=== PATIENT | female | born 1985 | race Caucasian/White ===

== ENCOUNTER 2022-08-24 17:22 | Emergency (ER) | payer OTHER, BC, SELFPAY ==
[2022-08-24 17:39] VITALS: BP 129/85; PULSE 69; RESP 16; TEMP 36.5; O2SAT 99
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
[2022-08-24 18:05] VITALS: PULSE 72
[2022-08-24 18:27] VITALS: PULSE 64; O2SAT 99
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
--- NOTE | 2022-08-24 18:54 | ED.NURSE ---
Registration staff was in with pt and asking general information from pt. requested registration staff get a nurse as pt was not asking questions normally and seemed to be fading in and out of consciousness. RN alerted Dr. Bauer immediately [id number]. Dr. Perkins requested this publications writer to call radiology to get pt scanned right away. Call placed to imagining staff. Dr. Perkins assessed pt at bedside. RN to continue to monitor per Dr. Perkins.
[2022-08-24 19:36] LABS: Basophils Absolute Auto 0.04 K/uL (0.00-0.30); Basophils Percent Auto 0.5 % (0.0-3.0); Chloride* 105 mmol/L (96-114); Eosinophils Absolute Auto 0.05 K/uL (0.00-0.50); Eosinophils Percent Auto 0.6 % (0.0-7.0); Hematocrit 40.1 % (33.0-51.0); Hemoglobin* 13.6 gm/dL (12.0-16.0); Immature Granulocytes Abs Auto 0.03 K/uL (0.00-0.30); Immature Granulocytes Pct Auto 0.3 %; Lymphocytes Percent Auto 10.4 % (20-44); Mean Corpuscular HGB Conc 34 gm/dL (32-36); Mean Corpuscular Hemoglobin 30 pg (26-34); Mean Corpuscular Volume 89 fL (80-100); Monocytes Percent Auto 4.2 % (0.0-11.0); Platelet Count* 391 K/uL (140-440); RDW Coefficient of Variation % 13.1 % (11.5-15.5); Red Blood Count 4.51 m/uL (4.00-5.20); Sodium* 139 mmol/L (135-149); White Blood Count* 8.72 K/uL (4.50-11.00)
[2022-08-24 19:37] LABS: Potassium* 4.1 mmol/L (3.6-5.1)
[2022-08-24 19:39] LABS: Blood Urea Nitrogen* 17 mg/dL (5-24); Carbon Dioxide* 27 mmol/L (20-32); Creatinine* 0.8 mg/dL (0.5-1.5); Estimated Glomerular Filt Rate 98 ml/min
[2022-08-24 19:40] LABS: Calcium* 9.4 mg/dL (8.4-10.6); Glucose* 101 mg/dL (60-115)
[2022-08-24 19:41] LABS: Slide Review Reflex No
[2022-08-24 19:42] LABS: Ethanol* < 0.01 % (0.01-0.03)
[2022-08-24] MEDS: KETOROLAC 15 MG/ML inj IVP (20:21)
[2022-08-24 20:40] VITALS: BP 122/76; PULSE 65; RESP 20; O2SAT 97
== END 2022-08-24 21:03 | disposition home or self-care (01) ==
PROVIDERS: Emergency Provider Family Medicine
DX: S16.1XXA Strain of muscle, fascia and tendon at neck level, initial encounter (principal); S39.012A Strain of muscle, fascia and tendon of lower back, initial encounter; V43.52XA Car driver injured in collision with other type car in traffic accident, initial encounter; M79.5 Residual foreign body in soft tissue
CPT/HCPCS: 36415; 70450; 71260; 72125; 72128; 72131; 73130; 80048; 82077; 85025; 96374; 99284; 99285; 99291; J1885; Q9967

== ENCOUNTER 2022-08-28 15:10 | Emergency (ER) | payer OTHER, BC, SELFPAY ==
[2022-08-28 15:24] VITALS: BP 112/74; PULSE 77; RESP 18; TEMP 37.1; O2SAT 99; BMI 23.1
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
[2022-08-28] MEDS: 0.9 % SODIUM CHLORIDE 1000 ml 1,000 ML IV (16:58)
[2022-08-28] MEDS: diphenhydrAMINE 50 MG/ML inj IVP (17:08)
[2022-08-28] MEDS: METOCLOPRAMIDE HCL 10 MG in 0.9 % SODIUM CHLORIDE 100 ml 100 ML 306 MG IVPB (17:21)
== END 2022-08-28 18:25 | disposition home or self-care (01) ==
PROVIDERS: Emergency Provider Family Medicine
DX: S16.1XXA Strain of muscle, fascia and tendon at neck level, initial encounter (principal); F07.81 Postconcussional syndrome; V43.52XA Car driver injured in collision with other type car in traffic accident, initial encounter
CPT/HCPCS: 70450; 72141; 96365; 96375; 99284; J1200; J2765; J7030

== ENCOUNTER 2023-01-31 13:45 | Outpatient (RCR) | payer BC, SELFPAY ==
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
== END 2023-05-31 23:59 | disposition home or self-care (01) ==
PROVIDERS: PCP Nurse Practitioner Family; Visit Provider Nurse Practitioner Family
DX: F07.81 Postconcussional syndrome (principal); H51.11 Convergence insufficiency; R26.81 Unsteadiness on feet; R29.898 Other symptoms and signs involving the musculoskeletal system; R29.818 Other symptoms and signs involving the nervous system; R41.842 Visuospatial deficit; Z51.89 Encounter for other specified aftercare
CPT/HCPCS: 95992; 97110; 97140; 97162; 97165; 97535; X5282

== ENCOUNTER 2024-02-05 08:51 | Outpatient (CLI) | payer BC, SELFPAY | END 2024-02-05 08:52 | disposition home or self-care (01) | LOC: NFLDREF 02-06 05:36 | PROVIDERS: PCP Nurse Practitioner Family; Referring Provider Nurse Practitioner Family; Visit Provider Nurse Practitioner Family | DX: R10.31 Right lower quadrant pain (principal); R30.0 Dysuria; N39.0 Urinary tract infection, site not specified | CPT/HCPCS: 81001; 87086; 87186 ==

== ENCOUNTER 2024-02-05 09:43 | Emergency (ER) | payer BC, SELFPAY ==
[2024-02-05 09:55] VITALS: BP 113/65; PULSE 81; RESP 18; TEMP 37.3; O2SAT 97; BMI 24.4
[2024-02-05 11:19] LABS: Appearance Urine Cloudy (Clear); Bilirubin Urine Negative (Negative); Blood Urine 2+ (Negative); Color Urine Yellow (Yellow); Glucose Urine Negative (Negative); Ketones Urine Negative (Negative); Leukocyte Esterase Urine 1+ (Negative); Nitrite Urine Negative (Negative); Protein Urine Trace (Negative); Urobilinogen Urine 0.2 (0.2-1.0)
--- NOTE | 2024-02-05 11:27 | CRLHL7_ITS ---
For Patients: As a result of the 21st Century Cures Act, medical imaging exams and procedure reports are released immediately into your electronic medical record. You may view this report before your referring provider. If you have questions, please contact your health care provider. INDICATION: Right flank and right lower quadrant pain. COMPARISON: None available. TECHNIQUE: CT of the abdomen and pelvis with 100 cc of Isovue 370 intravenous contrast. Please note that all CT scans at this facility use dose modulation, iterative reconstruction, and/or weight-based dosing when appropriate to reduce radiation dose to as low as reasonably achievable. FINDINGS: ABDOMEN Liver: Normal contour and attenuation. No significant focal lesion. No intrahepatic biliary ductal dilatation. Patent portal veins. Patent hepatic veins. Gallbladder: Normal size. No pericholecystic inflammatory changes. Normal common duct caliber. Pancreas: Normal contour and attenuation. No peripancreatic inflammatory changes. No significant focal lesion. Normal main duct caliber. Spleen: Nonspecific splenomegaly. The spleen measures 13.7 cm in craniocaudal length. No significant focal lesion. Accessory splenule. Patent splenic artery and vein. Adrenal Glands: Symmetrical adrenal glands. No significant focal lesion. Kidneys: Right extrarenal pelvis. Mural hyperenhancement of the right extrarenal pelvis and proximal right ureter (axial series 2; images 68-76 and coronal series 4; image 53) is consistent with pyeloureteritis. Correlation with urinalysis is recommended. Normal bilateral renal attenuation. No significant focal lesion. Too small to characterize round circumscribed homogeneous lateral interpolar right renal cortical hypodensity consistent with a benign renal cortical cyst (2; 65). No nephrolith. No dilatation of the intrarenal collecting systems. No ureteral stone. Nondilated ureters. Patent renal arteries and veins. Gastrointestinal tract: Normal caliber, attenuation and wall thickness of the gastrointestinal tract. No inflammatory changes. Normal small bowel mesentery. Unseen appendix without signs of acute appendicitis. Vascular: Abdominal aorta and its major proximal branches including the celiac, superior mesenteric, inferior mesenteric, renal, and bilateral common iliac arteries are patent. Patent superior mesenteric vein. Peritoneal Cavity/Retroperitoneum: No ascites. No adenopathy. PELVIS No bladder lesion is identified. 7.2 cm anterior homogeneous circumscribed simple fluid attenuation cystic lesion (2; 150), likely arising from the left ovary. Left anterior paramedian location anterior to the uterus without associated twisted vascular pedicle to indicate definite torsion. Ultrasound is recommended for further characterization. 2.1 cm right ovarian corpus luteum (2; 132). Small volume low density rectouterine, left adnexal and vesicouterine pelvic ascites within physiologic limits of normal. No adenopathy. SKELETON AND BODY WALL No acute or significant incidental findings. LOWER THORAX Partially included lower thoracic wall, lungs, pleural spaces and mediastinum are otherwise without significant incidental findings. IMPRESSION: 1. Mural hyperenhancement of the right extrarenal pelvis and proximal right ureter is consistent with pyeloureteritis. No evidence of urolithiasis or obstructive uropathy. Correlation with urinalysis is recommended. 2. 7.2 cm anterior homogeneous circumscribed simple fluid attenuation cystic lesion likely arising from the left ovary displaced anterior to the uterine fundus. No twisted vascular pedicle to indicate definite torsion. Ultrasound is recommended for further characterization. 3. Unseen appendix. No sign of acute appendicitis. 4. Small volume low density rectouterine, left adnexal and vesicouterine pelvic ascites is considered within physiologic limits of normal. Incidental note is made of a right ovarian corpus luteum. 5. Nonspecific splenomegaly. Clinical correlation is recommended as to the potential significance of this incidental imaging finding. Please note that all CT scans at this facility use dose modulation, iterative reconstruction, and/or weight-based dosing when appropriate to reduce radiation dose to as low as reasonably achievable. Dictated by Ron Choi MD @ 02/05/2024 12:41:17 PM (Electronically Signed)
[2024-02-05 11:35] LABS: WBC Urine >100 (0-5)
[2024-02-05 11:36] LABS: Bacteria Urine Few
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
[2024-02-05] MEDS: KETOROLAC 15 MG/ML inj IVP (11:45)
[2024-02-05 11:47] LABS: Basophils Absolute Auto 0.03 K/uL (0.00-0.30); Basophils Percent Auto 0.3 % (0.0-3.0); Eosinophils Absolute Auto 0.03 K/uL (0.00-0.50); Eosinophils Percent Auto 0.3 % (0.0-7.0); Hemoglobin* 15.1 gm/dL (12.0-16.0); Immature Granulocytes Abs Auto 0.03 K/uL (0.00-0.30); Immature Granulocytes Pct Auto 0.3 %; Mean Corpuscular HGB Conc 34 gm/dL (32-36); Mean Corpuscular Hemoglobin 28 pg (26-34); Mean Corpuscular Volume 84 fL (80-100); Monocytes Percent Auto 5.2 % (0.0-11.0); Neutrophils Percent Auto 85.9 % (42.0-72.0); Platelet Count* 304 K/uL (140-440); Red Blood Count 5.39 m/uL (4.00-5.20); White Blood Count* 10.88 K/uL (4.50-11.00)
[2024-02-05] MEDS: ONDANSETRON 2 MG/ML inj 4 MG IVP (11:48)
[2024-02-05 11:54] LABS: Ur HCG Qualitative* Negative (Negative)
[2024-02-05 11:57] VITALS: BP 112/72; PULSE 64; RESP 18; TEMP 37.2; O2SAT 97
[2024-02-05 12:13] LABS: Albumin* 4.2 g/dL (3.3-5.0); Chloride* 104 mmol/L (96-114); Sodium* 138 mmol/L (135-149)
[2024-02-05 12:16] LABS: Alkaline Phosphatase* 60 U/L (40-150); Anion Gap 8 mEq/L (7-15); Aspartate Amino Transferase* 20 U/L (12-35); Bilirubin Total* 0.7 mg/dL (0.1-1.5); Blood Urea Nitrogen* 12 mg/dL (5-24); Carbon Dioxide* 26 mmol/L (20-32); Creatinine* 0.6 mg/dL (0.5-1.5); Est. Creatinine Clearance* 154.29; Estimated Glomerular Filt Rate 119 ml/min
[2024-02-05 12:17] LABS: Alanine Aminotransferase* 14 U/L (4-35); Calcium* 9.2 mg/dL (8.4-10.6); Glucose* 96 mg/dL (60-115)
[2024-02-05 12:23] LABS: Slide Review Reflex No
--- NOTE | 2024-02-05 12:48 | CRLHL7_ITS ---
For Patients: As a result of the Century Cures Act, medical imaging exams and procedure reports are released immediately into your electronic medical record. You may view this report before your referring provider. If you have questions, please contact your health care provider. INDICATION: Follow-up cyst on CT. TECHNIQUE: Transabdominal pelvic ultrasound. COMPARISON: CT abdomen and pelvis with contrast 02/05/2024. FINDINGS: Uterus measures 9.3 x 4.9 x 5.8 cm. Uterus is homogeneous in echotexture, without evidence of discrete mass lesion. Endometrium: 14 mm in thickness. No sign of endometrial mass or fluid. Right ovary measures 4.3 x 2.5 x 2.6 cm. Right ovary is within normal limits. Normal-appearing color Doppler flow in the right ovary. Right adnexal region as imaged is unremarkable. Left ovary measures 3.6 x 2.1 x 2.4 cm. Simple appearing cystic lesion arising from or adjacent to the left ovary measures 7.2 x 5.5 x 6.3 cm. No associated vascularity. Normal-appearing color Doppler flow in the left ovary. Left adnexal region as imaged is otherwise unremarkable. Small amount of pelvic free fluid is better demonstrated on recent CT. IMPRESSION: Simple appearing left ovarian or paraovarian cyst measures up to 7.2 cm. Follow-up pelvic ultrasound in 8-12 weeks is recommended for further evaluation. Dictated by Lokesh Webber MD @ 02/05/2024 1:49:43 PM Dictated by: Lokesh Webber MD @ 02/05/2024 13:49:54 (Electronically Signed)
[2024-02-05] MEDS: cefTRIAXone 1 GM in 0.9 % SODIUM CHLORIDE Mini-bag 100 ML IVPB (13:28)
[2024-02-05 13:39] VITALS: BP 114/71; PULSE 61; RESP 18; TEMP 36.7; O2SAT 98
== END 2024-02-05 14:23 | disposition home or self-care (01) ==
PROVIDERS: Emergency Provider Student in an Organized Health Care Education/Training Program; PCP Nurse Practitioner Family
DX: N12 Tubulo-interstitial nephritis, not specified as acute or chronic (principal); N83.202 Unspecified ovarian cyst, left side
CPT/HCPCS: 36415; 74177; 76856; 80053; 81001; 81025; 85025; 93976; 96365; 96375; 99283; 99284; 99285; J0696; J1885; J2405; Q9967

== ENCOUNTER 2024-03-04 14:10 | Outpatient (CLI) | payer BC, SELFPAY ==
[2024-03-07 09:26] LABS: HPV Source Cervix; HPV, High Risk by TMA Not Detected
== END 2024-03-04 14:11 | disposition home or self-care (01) ==
PROVIDERS: PCP Nurse Practitioner Family; Visit Provider Obstetrics & Gynecology
DX: Z12.4 Encounter for screening for malignant neoplasm of cervix (principal); Z11.51 Encounter for screening for human papillomavirus (HPV)
CPT/HCPCS: 87624; 87625; 88141; 88142

== ENCOUNTER 2024-03-11 08:50 | Outpatient (CLI) | payer BC, SELFPAY | END 2024-03-11 08:51 | disposition home or self-care (01) | LOC: NFLDREF 03-12 01:56 | PROVIDERS: PCP Nurse Practitioner Family; Referring Provider Nurse Practitioner Family; Visit Provider Obstetrics & Gynecology | DX: Z13.220 Encounter for screening for lipoid disorders (principal); N83.202 Unspecified ovarian cyst, left side | CPT/HCPCS: 80061 ==

== ENCOUNTER 2024-03-11 08:52 | Outpatient (CLI) | payer BC, SELFPAY ==
--- NOTE | 2024-03-11 09:15 | CRLHL7_ITS ---
For Patients: As a result of the Century Cures Act, medical imaging exams and procedure reports are released immediately into your electronic medical record. You may view this report before your referring provider. If you have questions, please contact your health care provider. INDICATION: Follow up left ovarian cyst. TECHNIQUE: Transabdominal and transvaginal pelvic ultrasound. Grayscale and color Doppler images. COMPARISON: 02/05/2024. FINDINGS: Uterus is anteverted and measures 9.1 x 5.3 x 6.9 cm. Endometrial stripe thickness is 1.1 cm. Both ovaries appear normal. There is a simple left adnexal cyst measuring 6.8 cm in diameter, similar to the prior study. IMPRESSION: Stable simple left adnexal cyst. Dictated by Wisam Sanchez MD @ 03/11/2024 11:54:34 AM (Electronically Signed)
== END 2024-03-11 08:53 | disposition home or self-care (01) ==
LOC: US 08:52
PROVIDERS: PCP Nurse Practitioner Family; Visit Provider Obstetrics & Gynecology
DX: N83.202 Unspecified ovarian cyst, left side (principal)
CPT/HCPCS: 76830; 76856

== ENCOUNTER 2024-04-01 06:56 | Day surgery (SDC) | payer BC, SELFPAY ==
[2024-04-01] VITALS (15 sets, daily range): BP systolic 108–131; BP diastolic 65–110; PULSE 50–74; RESP 12–19; TEMP 36.3–36.8; O2SAT 96–98; BMI 24.0
--- OUTSIDE RECORDS SUMMARY | 2024-04-01 06:59 | XMS_ITS | Clinical Summary ---
Author Organization [facility] Address [address] [place] [id number] Phone Care Team Providers Care Cnc Lathe Machine Operator Name Role Phone Christine Marlenecrescencio Morales APRN, CNM Primary Care Provider Allergies No known active allergies Medications vitamin (CALNA) tabletIndication s: care and examination Take 1 Tab by mouth one time a day. 09/22/2010 Active oxyCODONE (ROXICODONE) 5 MG immediate release tabletIndication s:SAB (spontaneous ) Take 1 Tab by mouth every four hours as needed for Pain. 30 Tab 0 04/25/2011 Active Active Problems Problem Noted Date Diagnosed Date Encounter for supervision of other normal pregna ncy 04/11/2011 Overview (02/08/2015): IMO Update Immunizations Name Administration Dates Next Due Influenza 02/03/2009 Influenza H1N1 Unspecified 12/24/2008 Surgical History Surgery Date Site/Laterality Comments APPENDECTOMY Medical History Medical History Date Comments Varicella Seasonal allergies Family History Medical History Relation Comments Addiction Maternal Grandfather ETOH Blood Disease Maternal Grandfather Platelet is sues; low Cancer Maternal Grandfather mets Hypertension Maternal Grandfather Allergies Negative Family Hx Anesthesia Reaction Negative Family Hx Asthma Negative Family Hx Cardiovascular Disease Negative Family Hx Diabetes Negative Family Hx GI Disease Negative Family Hx Disease Negative Family Hx Genetic Disease Negative Family Hx Kidney Disease Negative Family Hx Lipid Elevation Negative Family Hx Liver Disease Negative Family Hx Mental Retardation Negative Family Hx Musculo-skeletal Disease Negative Family Hx Neuro Disease Negative Family Hx Ophthalmic Disease Negative Family Hx Other Negative Family Hx Other Endocrine Disease Negative Family Hx Psychiatric Disease Negative Family Hx Pulmonary Disease Negative Family Hx Skin Condition Negative Family Hx Vascular Disease Negative Family Hx Relation Status Comments Maternal Grandfather Social History Tobacco Use Types Packs/Day Years Used Date Smoking Tobacco: Never Smokeless Tobacco: Never Alcohol Use Standard Drinks/Week Comments No 0 (1 standard drink = 0.6 oz pur e alcohol) Rare prior to Comments Unknown Sex and Gender Information Value Date Recorded Sex Assigned at Not on file Legal Sex Female 11: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 Comments:spont labor; uncomplicated Last Filed Vital Signs Vital Sign Reading Time Taken Comments Blood Pressure 112/60 04/11/2011 3:46 PM SCHOOL PHOTOGRAPH EDITOR Pulse - - Temperature - - Respiratory Rate - - Oxygen Saturation - - Inhaled Oxygen Concentration - - Weight 74.5 kg (164 lb 3.2 oz) 04/11/2011 3:29 P M SCHOOL PHOTOGRAPH EDITOR Height 73 cm (2' 4.74) 04/21/2009 9:51 PM SCHOOL PHOTOGRAPH EDITOR Body Mass Index 139.77 04/21/2009 9:51 PM SCHOOL PHOTOGRAPH EDITOR Plan of Treatment Health Maintenance Due Date Last Done Comments Cervical Cancer Screening 1987 Last pap w/ HPV Testing 1987 Last pap w/o HPV Testing 1987 Hepatitis B Vaccine (Standin g Order) (1 of 3 - 19+ 3-dose series) 05/23/2006 PERTUSSIS (Standing Order) 05/23/2006 TETANUS (Standing Order) 05/23/2006 COVID-19 Vaccine (2023-2 5 season) 2023 Influenza Vaccine Seasonal (Standing Order) (#1) 2023 12/24/2008 HPV Vaccine (Standing Order) Aged Out No longer eligible based on patient's age to complete this topic Pneumococcal/PCV20 Vaccine: Pediatrics (2-5 yrs) and At-Risk Patients (6-49 yrs) (Standing Order) Aged Out No longer eligible b ased on patient's age to complete this topic Care Teams Cnc Lathe Machine Operator Relationship Specialty Start Date End Date Marlene King APRN, CARIDAD [address] [place] [id number] PCP - General Midwifery 03/08/11
[2024-04-01] MEDS: 0.9 % SODIUM CHLORIDE 500 ML 500 ML 100 ML IV ×2 (07:30→11:19)
[2024-04-01 07:53] LABS: Ur HCG Qualitative* Negative (Negative)
[2024-04-01] MEDS: SODIUM CHLORIDE 0.9 % (FLUSH) 10 ML SYRINGE IVF (08:00)
--- NOTE | 2024-04-01 08:34 | P.GYNPRC_ITS ---
Procedure Note Date of procedure: 04/01/24 Will [facility] bill your pro fee for this procedure?: Yes Pre-op diagnosis: 1. Large left adnexal cyst, ~7 cm diameter. Post-op diagnosis: 1. Large left paratubal cyst, ~10 cm diameter. Procedure: Laparoscopic left paratubal cystectomy and left salpingectomy. Anesthesia: GETA Complications: None. Surgeon: Shahla Messina MD Estimated blood loss (mL): 20 Urine Output (mL): 300 Pathology: specimen obtained, sent to pathology (Left fallopian tube and attached paratubal cyst, along with small portion of proximal left fallopian tube) Condition: stable Disposition: PACU Findings: Large, approximately 7 x 10 cm left paratubal cyst filled with clear straw-color fluid, densely attached to left fallopian tube from fimbrial end along 2/3 the length of the tube. Normal-appearing uterus, right fallopian tube, and bilateral ovaries. Procedure Description: After obtaining informed consent, the patient was taken to the operating room where general anesthesia was obtained without difficulty. She was prepared and draped in the normal sterile fashion in the low dorsal lithotomy position. A Schultz catheter was inserted into the bladder and left to gravity drainage. A medium Graves open-sided speculum was introduced into the vagina. The cervix was visualized and grasped along its anterior lip with a single-toothed tenaculum. A STP GrouplMimoona uterine manipulator was placed without difficulty. The tenaculum and speculum were removed. I then changed gloves and my attention was turned to the abdomen. The inferior aspect of the umbilical fold was injected with 0.25% Marcaine plain. A 5 mm vertical incision was then made within the umbilical fold using a scalpel. The subcutaneous tissues were bluntly dissected with a Lizzy clamp to the fascia. The fascia was grasped with 2 small Silke clamps and elevated. A direct entry technique was used to place a 5 mm laparoscopic port with CO2 gas set to a 5 mmHg. The trocar was removed leaving the sleeve in place. The CO2 gas flow was turned to high flow to achieve pneumoperitoneum. The 5 mm laparoscope was used then to carefully inspect the abdomen and pelvis with findings noted above. Pictures were taken for documentation purposes. The patient was placed in Trendelenburg positioning. Two additional laparoscopic ports were placed in the right (11 mm) and left (5 mm) lower quadrants under direct visualization after first anesthetizing the skin and fascia with 0.25% Marcaine plain. The uterus was elevated using the uterine manipulator. The bowels were gently pushed from the pelvis cephalad. The left fallopian tube was grasped near the left paratubal cyst, and elevated. There was a pedicle noted extending from the left ovary to the paratubal cyst, which was separate from the left infundibulopelvic ligament. The LigaSure bipolar electrocautery cutting device was used to seal the pedicle and transected. This the left paratubal cyst and attached left fallopian tube from its blood supply and the left ovary. The remaining left fallopian tube was then grasped and excised using the LigaSure as well, and that small piece was removed through a laparoscopic port to be sent with the remaining specimen. An Endo-Catch bag was then introduced into the abdomen through the right lower quadrant port. The system attached ovary were placed within the Endo-Catch bag. The cyst was quite large, and this cause some difficulty maneuv ering it completely into the bag. In the process, a small rupture was made in the cyst and some clear fluid spilled into the abdomen. The bag was cinched around the specimen, the right lower quadrant port was removed, and the Endo- Catch bag was brought to the surface of the incision. The suction ux information architect was placed into the bag to suction out as much of the fluid as possible to decompress the cyst. In the process, some of the cyst fluid also spilled over the patient's skin. Once the cyst was completely decompressed, the Endo-Catch bag was removed from the abdomen the right lower quadrant port replaced. The pelvis was copiously irrigated with warmed normal saline and suction. Excellent hemostasis was visualized. The right lower quadrant port was again removed, and the Boby-Maria Del Carmen device was introduced used to reapproximate the fascia and peritoneum with 0 Vicryl. All instruments were then removed under direct visualization. Pneumoperitoneum was allowed to escape. The right lower quadrant fascial incision was noted to not have been well approximated with the Boby-Maria Del Carmen device, as there was still a defect. The fascial edges were grasped definitively under direct visualization with Silke clamps, and a figure of X suture of 0 chromic was used to better reapproximate the fascia. The skin at all 3 port sites was closed in a subcuticular fashion with 4-0 Vicryl. Surgical glue was then placed over the incisions. The uterine manipulator and Schultz catheter were removed. The patient tolerated the procedure well. Sponge, lap, and needle counts were correct x2. The patient was taken to the recovery room awake and in stable condition.
[2024-04-01] MEDS: BUPIVACAINE 0.25% 30 ML 12 ML INJECTION (10:03)
--- NOTE | 2024-04-01 10:26 | P.ANES_ITS ---
Anesthesia Charges Start Date/Time Anesthesia Start Date: 04/01/24 Anesthesia Start Time: 08:55 Stop Date/Time Anesthesia Stop Date: 04/01/24 Anesthesia Stop Time: 10:26 Coding CPT Codes CPT Codes: ANESTH SURG LOWER ABDOMEN - 75521 ([id number]) P1 - NORMAL HEALTHY PATIENT, QX - INSULATION BLOWER CHAD W/ MED DIRECTION, QK - MULTIPLE KNIFE EDGE TRIMMER OPERATOR 2-4 CNCRNT ANES PROC
--- NOTE | 2024-04-01 10:26 | W.ANESCHARGE ---
Anesthesia Charges Start Date/Time Anesthesia Start Date: 04/01/24 Anesthesia Start Time: 08:55 Stop Date/Time Anesthesia Stop Date: 04/01/24 Anesthesia Stop Time: 10:26 Coding CPT Codes CPT Codes: ANESTH SURG LOWER ABDOMEN - 11447 ([id number]) P1 - NORMAL HEALTHY PATIENT, QX - CIDER PRESS OPERATOR CHAD W/ MED DIRECTION, QK - PARKING ANALYST 2-4 CNCRNT ANES PROC
--- NOTE | 2024-04-01 12:06 | P.ANES_ITS ---
Anesthesia Charges Start Date/Time Anesthesia Start Date: 04/01/24 Anesthesia Start Time: 08:55 Stop Date/Time Anesthesia Stop Date: 04/01/24 Anesthesia Stop Time: 10:26 Coding CPT Codes CPT Codes: ANESTH SURG LOWER ABDOMEN - 39500 ([id number]) P1 - NORMAL HEALTHY PATIENT, QK - DIGESTER 2-4 CNCRNT ANES PROC, QX - SUPERVISOR DRY CLEANING SVAmalia W/ MED DIRECTION
--- NOTE | 2024-04-01 12:06 | W.ANESCHARGE ---
Anesthesia Charges Start Date/Time Anesthesia Start Date: 04/01/24 Anesthesia Start Time: 08:55 Stop Date/Time Anesthesia Stop Date: 04/01/24 Anesthesia Stop Time: 10:26 Coding CPT Codes CPT Codes: ANESTH SURG LOWER ABDOMEN - 34609 ([id number]) P1 - NORMAL HEALTHY PATIENT, QK - ARTIFICIAL FLOWERS DYER 2-4 CNCRNT ANES PROC, QX - COSTUME TECHNICIAN SVAmalia W/ MED DIRECTION
[2024-04-01] MEDS: ACETAMINOPHEN 500 MG TABLET 1000 MG PO (13:12)
== END 2024-04-01 14:10 | disposition home or self-care (01) ==
LOC: OR 06:57
PROVIDERS: PCP Nurse Practitioner Family; Visit Provider Obstetrics & Gynecology
PROC: (CPT 58662; principal; 2024-04-01 08:45)
DX: N83.8 Other noninflammatory disorders of ovary, fallopian tube and broad ligament (principal)
CPT/HCPCS: 58662; 58661; 00840; 81025; 88304; A9270; J0330; J0665; J1100; J1885; J2250; J2405; J2704; J2710; J3010; J3490; J7030